=== PATIENT | female | born 1975 | race Caucasian/White ===

== ENCOUNTER 2025-03-13 13:04 | Emergency (ER) | payer MEDICARE ==
[2025-03-13] MEDS ORDERED: D50W 50 ml Abboject IV ONE (13:21)
--- NOTE | 2025-03-13 13:23 | ERPHSYRPT ---
- History of Present Illness Time Seen by Provider: 03/13/25 13:20 Source: patient, EMS Physician History: Noted history. Patient brought in by EMS. Reportedly went to dialysis and had a systolic blood pressure of 50. Patient reports that she missed dialysis since last Tuesday because she "did not feel good". She is oriented x 3. She is not able to give me any specific history of her symptoms. She states that she just does not feel well. She denies chest or abdominal pain. She reports she does make urine. She denies shortness of breath. Blood sugars in the 70s on arrival by EMS. Denies fever or chills. Allergies/Adverse Reactions: Penicillins Allergy (Unknown, Verified 01/01/25 09:52) Home Medications: Allopurinol 300 mg [Zyloprim 300 mg] 300 mg PO DAILY 01/03/19 [History] Atorvastatin Calcium [Lipitor] 40 mg PO QHS 01/03/19 [History] Fluticasone/Vilanterol [Breo Ellipta 200-25 Mcg INH] 1 each IH DAILY 01/03/19 [History] Omeprazole Magnesium [Prilosec Otc] 40 mg PO DAILY 01/03/19 [History] Potassium Chloride [Klor-Con M15] 40 meq PO DAILY 01/03/19 [History] Venlafaxine HCl 37.5 mg [Effexor 37.5 mg] 37.5 mg PO DAILY 01/03/19 [History] Warfarin Sodium 2 mg [Coumadin 2 MG] 4 mg PO DAILY 01/03/19 [History] Amiloride HCl 5 mg PO DAILY 01/04/19 [History] Digoxin [Lanoxin] 250 mcg PO DAILY 01/04/19 [History] Ergocalciferol (Vitamin D2) [Vitamin D] 50,000 unit PO WEEKLY 01/04/19 [History] Glimepiride 2 mg [Amaryl 2 MG] 2 mg PO DAILY 01/04/19 [History] Insulin Degludec [Tresiba] 10 unit SQ DAILY 01/04/19 [History] Levothyroxine Sodium 150 Mcg [Synthroid 150 Mcg] 150 mcg PO DAILY 01/04/19 [History] Metoprolol Tartrate 50 mg PO BID 01/04/19 [History] Spironolactone 50 mg PO BID 01/04/19 [History] lisinopriL [Zestril] 2.5 mg PO BID 01/04/19 [History] metOLazone [Metolazone] 5 mg PO DAILY 01/04/19 [History] Hx Tetanus, Diphtheria Vaccination/Date Given: Yes (ABOUT 10 YRS AGO) Hx Influenza Vaccination/Date Given: Yes (2012) Hx Pneumococcal Vaccination/Date Given: Yes (2012) - Review of Systems Constitutional: Weakness Eyes: No Symptoms Ears, Nose, & Throat: No Symptoms Respiratory: No Cough, No Dyspnea Cardiac: No Chest Pain, No Edema, No Syncope Abdominal/Gastrointestinal: No Abdominal Pain, No Nausea, No Vomiting, No Diarrhea Genitourinary Symptoms: No Dysuria Musculoskeletal: No Back Pain, No Neck Pain Skin: No Rash Neurological: No Dizziness, No Focal Weakness, No Sensory Changes Psychological: No Symptoms Endocrine: No Symptoms All Other Systems: Reviewed and Negative - Past Medical History Respiratory History: CHF, Asthma, Bronchitis GI Medical History: Other, GERD Psycho-Social History: Depression, Anxiety - Past Surgical History Past Surgical History: Yes Neuro Surgical History: No Pertinent History Cardiac: Internal Defibrillator Respiratory: No Pertinent History Gastrointestinal: No Pertinent History Genitourinary: No Pertinent History Musculoskeletal: No Pertinent History Female Surgical History: Section - Female History Hx Last Menstrual Period: JUNE 2013 - Social History Drug Use: none - Nursing Vital Signs Nursing Vital Signs: Initial Vital Signs Temperature 97.2 F 03/13/25 13:06 Pulse Rate 72 03/13/25 13:06 Respiratory Rate 12 03/13/25 13:06 Blood Pressure 63/34 03/13/25 13:06 O2 Sat by Pulse Oximetry 93 L 03/13/25 13:06 Pain Scale Pain Intensity 0 - Physical Exam General Appearance: other (Patient arrives hypotensive, oriented x 3 was somewhat slow to answer questions.) Respiratory Exam: normal breath sounds Cardiovascular Exam: regular rate/rhythm Gastrointestinal/Abdomen Exam: soft, No tenderness Extremity Exam: normal inspection Neurologic Exam: alert, oriented x 3, No motor deficits Skin Exam: pale SpO2 Interpretation: normal Ordered Tests: Active Orders 24 hr Category Date Time Status Senior Nuclear Medicine Technologist STAT Care 03/13/25 13:17 Active EKG-ER Only STAT Care 03/13/25 13:16 Active IV Insertion STAT Care 03/13/25 13:17 Active Pulse Oximetry (ED) STAT Care 03/13/25 13:17 Active CHEST 1 VIEW (PORTABLE) Stat Exams 03/13/25 13:17 Completed BLOOD CULTURE Stat Lab 03/13/25 13:42 Received CBC W DIFF Stat Lab 03/13/25 13:20 Completed CMP Stat Lab 03/13/25 13:20 Completed Lactic Acid Stat Lab 03/13/25 14:37 Completed Manual Differential NC Stat Lab 03/13/25 13:20 Completed POCT GLUCOSE Stat Lab 03/13/25 14:57 Completed UA W/RFX UR CULTURE Stat Lab 03/13/25 13:17 Ordered VBG [VENOUS BLOOD GAS] Stat Lab 03/13/25 13:18 Completed Medication Summary Generic Name Dose Route Start Last Admin Trade Name Freq PRN Reason Stop Dose Admin Vancomycin HCl 1.5 gm in 300 mls @ 150 mls/hr 03/13/25 14:45 03/13/25 14:50 Vancomycin 1.5 Gram/300 Ml Bag IV 03/13/25 16:44 150 mls/hr NOW ONE 150 mls/hr Administration Norepinephrine/Dextrose 8 mg in 250 mls @ 15 mls/hr 03/13/25 14:45 03/13/25 15:12 Norepinephrine 8 Mg/250 Ml-D5w IV 04/12/25 14:44 10 mcg/min .[id number] PRN 18.75 mls/hr HYPOTENSION Titration Protocol 8 MCG/MIN Discontinued Medications Generic Name Dose Route Start Last Admin Trade Name Freq PRN Reason Stop Dose Admin Cefepime HCl Confirm 03/13/25 14:30 Cefepime Hcl 1 Gm Vial Administered 03/13/25 14:31 Dose 1 g .ROUTE .STK-MED ONE Dextrose Confirm 03/13/25 13:21 Dextrose 50%-Water 50 Ml Abboject Administered 03/13/25 13:22 Dose 50 ml IV .STK-MED ONE Dextrose 50 ml 03/13/25 13:42 03/13/25 13:46 Dextrose 50%-Water 50 Ml Abboject IV 03/13/25 13:43 50 ml STAT ONE Administration Sodium Chloride Confirm 03/13/25 13:21 Sodium Chloride 0.9% 500 Ml Administered 03/13/25 13:22 Dose 500 mls @ ud IV .STK-MED ONE Sodium Chloride 500 mls @ 500 mls/hr 03/13/25 13:41 03/13/25 14:51 Sodium Chloride 0.9% 500 Ml IV 03/13/25 14:40 Infused .Q1H ONE Infusion Cefepime HCl 1 g/ Sodium 100 mls @ 200 mls/hr 03/13/25 14:06 03/13/25 15:15 Chloride IV 03/13/25 14:35 Infused STAT STA Infusion Sodium Chloride Confirm 03/13/25 14:14 Sodium Chloride 0.9% 50 Ml Administered 03/13/25 14:15 Dose 50 mls @ ud IV .STK-MED ONE Sodium Chloride Confirm 03/13/25 14:15 Sodium Chloride 0.9% 500 Ml Administered 03/13/25 14:16 Dose 500 mls @ ud IV .STK-MED ONE Sodium Chloride Confirm 03/13/25 14:31 Sodium Chloride 0.9% Administered 03/13/25 14:32 Dose 100 mls @ ud .ROUTE .STK-MED ONE Norepinephrine/Dextrose Confirm 03/13/25 14:34 Norepinephrine 8 Mg/250 Ml-D5w Administered 03/13/25 14:35 Dose 8 mg in 250 mls @ ud IV .STK-MED ONE Sodium Chloride 500 mls @ 999 mls/hr 03/13/25 14:42 03/13/25 14:44 Sodium Chloride 0.9% 500 Ml IV 03/13/25 15:12 999 mls/hr .Q31M ONE Administration Lab/Rad Data: Laboratory Result Diagrams 03/13/25 13:20 03/13/25 13:20 Laboratory Results 03/13/25 03/13/25 03/13/25 Range/Units 14:57 14:37 13:20 WBC (3.98-10.04) x10^3/uL RBC (3.93-5.22) x10^6/uL Hgb (11.2-15.7) g/dL Hct (34.1-44.9) % MCV (79.4-94.8) fL MCH (25.6-32.2) pg MCHC (32.2-35.5) g/dL RDW (11.7-14.4) % Plt Count (182-369) x10^3/uL Segmented Neutrophils (34.0-71.1) % Lymphocytes (Manual) (19.3-51.7) % Monocytes (Manual) (4.7-12.5) % Eosinophils (Manual) (0.7-5.8) % Platelet Estimate (NORMAL) RBC Morphology Anisocytosis Tear Drop Cells [place] Cells pO2/FiO2 Ratio % VBG pH (7.32-7.42) VBG pCO2 at Pat Temp (42-55) mm/Hg VBG pO2 at Pat Temp (25-40) mm/Hg VBG HCO3 (22-28) meq/L VBG O2 Sat (Tu) (95-100) VBG Base Excess (-2.0-2.0) VBG Hemoglobin VBG Carboxyhemoglobin (0.0-6.9) % T HGB POC Potassium (3.5-5.1) Sodium 124 L (135-145) mmol/L Potassium 4.0 (3.5-5.1) mmol/L Chloride 85 L (98-107) mmol/L Carbon Dioxide 23 (22-30) mmol/L Anion Gap 19.9 H (5-15) MEQ/L BUN 87 H (7-17) mg/dL Creatinine 5.81 H (0.52-1.04) mg/dL Estimated GFR 8.2 ML/MIN Glucose 69 L (74-106) mg/dL POC Glucometer 104 (74 to 106) mg/dL Lactic Acid 2.8 H (0.4-2.0) Calcium 8.8 (8.4-10.2) mg/dL Total Bilirubin 10.70 H (0.2-1.3) mg/dL AST 50 H (14-36) U/L ALT 28 (0-35) U/L Alkaline Phosphatase 467 H (38-126) U/L Serum Total Protein 7.3 (6.3-8.2) g/dL Albumin 3.0 L (3.5-5.0) g/dL 03/13/25 03/13/25 Range/Units 13:20 13:18 WBC 18.4 H (3.98-10.04) x10^3/uL RBC 4.45 (3.93-5.22) x10^6/uL Hgb 12.5 (11.2-15.7) g/dL Hct 37.7 (34.1-44.9) % MCV 84.7 (79.4-94.8) fL MCH 28.1 (25.6-32.2) pg MCHC 33.2 (32.2-35.5) g/dL RDW 20.3 H (11.7-14.4) % Plt Count 48 L (182-369) x10^3/uL Segmented Neutrophils 96 H (34.0-71.1) % Lymphocytes (Manual) 2 L (19.3-51.7) % Monocytes (Manual) 1 L (4.7-12.5) % Eosinophils (Manual) 1 (0.7-5.8) % Platelet Estimate DECREASED (NORMAL) RBC Morphology ABNORMAL Anisocytosis 2+ Tear Drop Cells 1+ [place] Cells 1+ pO2/FiO2 Ratio 21.0 % VBG pH 7.38 (7.32-7.42) VBG pCO2 at Pat Temp 42 (42-55) mm/Hg VBG pO2 at Pat Temp 39 (25-40) mm/Hg VBG HCO3 24.8 (22-28) meq/L VBG O2 Sat (Tu) 65.4 L (95-100) VBG Base Excess -0.4 (-2.0-2.0) VBG Hemoglobin 13.0 VBG Carboxyhemoglobin 4.6 (0.0-6.9) % T HGB POC Potassium 4.1 (3.5-5.1) Sodium (135-145) mmol/L Potassium (3.5-5.1) mmol/L Chloride (98-107) mmol/L Carbon Dioxide (22-30) mmol/L Anion Gap (5-15) MEQ/L BUN (7-17) mg/dL Creatinine (0.52-1.04) mg/dL Estimated GFR ML/MIN Glucose (74-106) mg/dL POC Glucometer (74 to 106) mg/dL Lactic Acid (0.4-2.0) Calcium (8.4-10.2) mg/dL Total Bilirubin (0.2-1.3) mg/dL AST (14-36) U/L ALT (0-35) U/L Alkaline Phosphatase (38-126) U/L Serum Total Protein (6.3-8.2) g/dL Albumin (3.5-5.0) g/dL - Progress Progress: unchanged Progress Note: 03/13/25 13:24 Patient is a dialysis patient arrived by ambulance very limited history. Reportedly had been extremely fatigued arrived to dialysis with a systolic blood pressure that was low. Arrives with systolic pressure of 60. Patient unable to give any specific history. IV fluid bolus in modified septic cardiovascular workup for evaluation with chest x-ray CBC chemistries cultures urinalysis. 03/13/25 15:17 Patient was reexamined multiple times. She had systolic blood pressures up into the upper 80s after initial fluid boluses x 2 she is a dialysis patient so concern for pulmonary edema was an issue. IV antibiotics started. Lactic acid was ordered twice in the system which appeared to place the initial date later than the prior order. Patient remained alert oriented x 3. Believes she may be septic based on her elevated white count but she is afebrile. Lactic acid mid twos. Discussed the case with outside facility they discussed case with Dr. Benjamin the ER [facility]. During the discussion the patient dropped her blood pressure again and was started on vasopressors. The third fluid bolus was ordered. She had repeat blood pressures in the 90s remaining alert oriented x 3. We discussed present situation. This facility is unable to care for the patient lacking critical care facilities and dialysis. Excepted the outside facility the ER to ER transfer. She is in stable but serious condition at the time of transport but I do feel like she has been stabilized to the full extent of this department at the present time given that she has had fluid resuscitation, IV antibiotics, vasopressors. She is agreeable to transport to the outside facility for critical care. 03/13/25 15:20 35 minutes critical care time for evaluation reassessments IV antibiotics IV fluid reassessment and discussion with outside facility. - Departure Departure Disposition: Transfer Clinical Impression: Sepsis Condition: Fair Critical Care Time: Yes Critical Care Time(excluding separately billable procedures): Critical 30-74 mins Referrals: ELISEO DAVE [Primary Care Provider, [facility]] - Follow up/PCP as directed
[2025-03-13 13:33] LABS: VBG BASE EXCESS -0.4 (-2.0-2.0); VBG CARBOXYHEMOGLOBIN 4.6 % T HGB (0.0-6.9); VBG FIO2 21.0 %; VBG HCO3- 24.8 meq/L (22-28); VBG HEMOGLOBIN 13.0; VBG O2 SATURATION 65.4 (95-100); VBG PCO2 42.0 mm/Hg (42-55); VBG PO2 39.0 mm/Hg (25-40); VBG POTASSIUM 4.1 (3.5-5.1)
[2025-03-13] MEDS: D50W 50 ml Abboject IV ONE (13:46)
[2025-03-13 13:49] LABS: Hematocrit 37.7 % (34.1-44.9); Hemoglobin 12.5 g/dL (11.2-15.7); Mean Corpuscular Hemoglobin 28.1 pg (25.6-32.2); Mean Corpuscular Hgb Concent. 33.2 g/dL (32.2-35.5); Platelet Count 48 x10^3/uL (182-369); Red Blood Count 4.45 x10^6/uL (3.93-5.22); White Blood Count 18.4 x10^3/uL (3.98-10.04)
[2025-03-13 13:59] LABS: Calcium 8.8 mg/dL (8.4-10.2); Carbon Dioxide 23.0 mmol/L (22-30); Glucose 69.0 mg/dL (74-106); Potassium 4.0 mmol/L (3.5-5.1); SGOT/AST 50.0 U/L (14-36); SGPT/ALT 28.0 U/L (0-35); Total Protein 7.3 g/dL (6.3-8.2)
[2025-03-13 14:00] VITALS: TEMP 97.2
[2025-03-13 14:05] LABS: Creatinine 1 5.81 mg/dL (0.52-1.04); EST GLOMERULAR FILTRATION RATE 8.2 ML/MIN
--- NOTE | 2025-03-13 14:16 | XRAY ---
Indication: Weakness. Comparison: March 12, 2024 Portable chest again demonstrates marked cardiomegaly with left AICD and new right double-lumen dialysis catheter. New diffuse right lung ground-glass airspace disease with small effusion. Bony thorax intact.
[2025-03-13] MEDS ORDERED: MAXIPIME 1 GM ONE (14:30)
[2025-03-13] MEDS ORDERED: NOREPINEPHRINE 8 MG/250 ML-D5W 8 MG/250 ML PLAST..BAG IV ONE (14:34)
[2025-03-13 14:38] LABS: Total Cells Counted 100
[2025-03-13 14:39] LABS: Burr Cells 1+; Tear Drop Cells 1+
[2025-03-13] MEDS: MAXIPIME 1 GM** 1 G in Sodium Chloride 0.9% 100 ML IV STA (14:40)
[2025-03-13] MEDS: NOREPINEPHRINE 8 MG/250 ML-D5W 8 MG/250 ML PLAST..BAG IV PRN (14:47)
[2025-03-13] MEDS: VANCOMYCIN 1.5 GRAM/300 ML BAG 1.5 GM/300 ML PIGGYBACK IV ONE (14:50)
[2025-03-15 16:02] VITALS: BP 114/65; PULSE 82; RESP 20; O2SAT 96
== END 2025-03-13 15:30 | disposition short-term general hospital (02) ==
LOC: ED 13:04
DX: A41.9 Sepsis, unspecified organism (principal); I95.9 Hypotension, unspecified; N18.6 End stage renal disease; Z79.84 Long term (current) use of oral hypoglycemic drugs; Z79.01 Long term (current) use of anticoagulants; Z79.4 Long term (current) use of insulin; Z79.899 Other long term (current) drug therapy; Z99.2 Dependence on renal dialysis